=== PATIENT | female | born 1980 | race Two or more races ===

== ENCOUNTER → 2020-08-22 | Outpatient (CLI) | payer SELFPAY ==
[~2020-08-22] MED LIST: DOCU-109 PO; FERR325T14 PO; IBUP-1060 PO; OXYC1TAB15 PO
== END ==
LOC: LAB 11:50
PROVIDERS: ATTEND Obstetrics & Gynecology
DX: Z01.812 Encounter for preprocedural laboratory examination (principal); Z20.822 Contact with and (suspected) exposure to COVID-19
CPT/HCPCS: U0003

== ENCOUNTER 2020-08-25 05:26 | Inpatient (IN) | payer SELFPAY ==
[2020-08-25] VITALS (11 sets, daily range): BP systolic 109–127; BP diastolic 63–76
[~2020-08-25] VITALS: Ht 160 cm; Wt 109.5 kg
[2020-08-25] MEDS ORDERED: BENZOCAINE 20% TOPICAL AEROSOL SPRAY 57GM CAN. TP PRN (05:30)
[2020-08-25] MEDS ORDERED: MMR per PROTOCOL. MC PRN (05:30)
[2020-08-25] MEDS ORDERED: oxyCODONE/APAP 5/325 1 TAB TABLET PO PRN (05:30)
[2020-08-25] MEDS ORDERED: 0.9 % SODIUM CHLORIDE 10 ML DISP.SYRIN. IV PRN (05:30)
[2020-08-25] MEDS ORDERED: CITRIC ACID/SODIUM CITRATE 30 ML SOLUTION. PO ONE (05:30)
[2020-08-25] MEDS ORDERED: DOCUSATE SODIUM 100 MG CAPSULE. PO PRN (05:30)
[2020-08-25] MEDS ORDERED: diphenhydrAMINE ORAL ELIXIR 12.5 MG/5 ML ML PO PRN (05:30)
[2020-08-25] MEDS ORDERED: OXYTOCIN 30 UNIT/500 ML PREMIX 500 ML IV PRN (05:30)
[2020-08-25] MEDS ORDERED: ACETAMINOPHEN 325 MG TABLET. PO PRN (05:30)
[2020-08-25] MEDS ORDERED: TDaP (Adacel) per PROTOCOL. MC PRN (05:30)
[2020-08-25] MEDS ORDERED: ceFAZolin 2GM PREMIX 2 GM/50 ML BAG IV ONE (06:00)
[2020-08-25] MEDS: IV RINGERS,LACTATED 1000ML 1,000 ML IV SCH ×3 (06:25→21:36)
[2020-08-25 06:35] LABS: BILIRUBIN,URINE NEGATIVE (NEG); CLARITY,URINE CLEAR; COLOR,URINE YELLOW; NITRITE,URINE NEGATIVE (NEG); PROTEIN,URINE NEGATIVE (NEG-TRACE); UROBILINOGEN,URINE 0.2 mg/dL (0.2 mg/dL)
[2020-08-25 07:02] LABS: BACTERIA,URINE FEW /HPF (0-FEW); RBC,URINE 0 /HPF (0-2)
[2020-08-25] MEDS ORDERED: ePHEDrine PF IN SALINE 50 MG/10 ML SYRINGE. IV ONE (07:38)
[2020-08-25] MEDS ORDERED: PHENYLEPHRINE in 0.9% NACL PF 1 MG/10 ML SYRINGE. IV ONE (07:39)
[2020-08-25] MEDS ORDERED: ONDANSETRON PF 4 MG/2 ML VIAL. ONE ×2 (07:39→07:42)
[2020-08-25] MEDS ORDERED: MORPHINE PF 10 MG/10 ML AMPUL. ONE (07:39)
[2020-08-25] MEDS ORDERED: fentaNYL PF VIAL 100 MCG/2 ML VIAL ONE (07:40)
[2020-08-25] MEDS ORDERED: OXYTOCIN 10 UNIT/ML VIAL. ONE (07:41)
[2020-08-25] MEDS ORDERED: METOCLOPRAMIDE HCL 10 MG/2 ML VIAL. ONE (07:43)
[2020-08-25] MEDS ORDERED: FAMOTIDINE 20 MG/2 ML VIAL ONE (07:43)
--- NOTE | 2020-08-25 07:57 | PDOC1 ---
MARKETING CONSULTANT H&P Date of Admission: Date of Admission: Aug 25, 2020 at 05:26 History of Present Illness: EDC: 09/01/20 LMP: 11/26/19 39y @ 39.0 by L=18 presents for scheduled C/S. The pt has been relatively uncomplicated. She has been getting growth and testing a [facility] for AMA. PMH: Hyperlipidemia, Otitis media, Allergic rhinitis, Prediabetes PSH: C/S x 2 Meds: PNV, Fe, ASA All: NKDA OBHx: TC/S x 2 SH: no tob, no EtOH FH: HTN, DM Medications: Meds: Current Medications Medications (Trade) Dose Ordered Sig/Jaymie Route PRN Reason Start Time Stop Time Status Last Admin Dose Admin Citric Acid/ Sodium Citrate (Bicitra) 30 ml 1X ONCE PO 08/25/20 05:30 08/25/20 05:44 DC 08/25/20 07:27 Ringer's Solution 1,000 ml @ 125 mls/hr Q8H IV 08/25/20 06:30 08/25/20 07:51 Allergies: Coded Allergies: No Known Drug Allergies (Unverified , 08/25/20) Physical Exam: Vital Signs: Vital Signs Date Time Temp Pulse Resp B/P (MAP) Pulse Ox O2 Delivery O2 Flow Rate FiO2 08/25/20 06:30 97.6 86 18 127/75 (92) Room Air 97.6 PE: GENERAL: No apparent distress. Alert and oriented. HEENT: Head normocephalic, atraumatic. NECK: Supple LUNGS: Clear to auscultation. HEART: RRR, S1, S2 present, pulses intact ABDOMEN: Soft, positive bowel sounds. EXTREMITIES: No cyanosis or edema. NEUROLOGIC: Normal speech, normal tone PSYCHIATRIC: Normal affect, normal mood. SKIN: No ulceration. FHT: 150s +acels/no decels/mLTV Kinder: quiet Labs: Laboratory Tests Test 08/25/20 05:40 Urine Collection Type Unknown Urine Color Yellow Urine Clarity Clear Urine pH 7.0 (<5.0-8.0) Urine Specific [place] 1.020 (1.000-1.030) Urine Protein Negative mg/dL (NEG-TRACE) Urine Glucose (UA) Negative mg/dL (NEG) Urine Ketones (Stick) Negative mg/dL (NEG) Urine Blood Negative (NEG) Urine Nitrite Negative (NEG) Urine Bilirubin Negative (NEG) Urine Urobilinogen Dipstick 0.2 mg/dL (0.2 mg/dL) Urine Leukocyte Esterase Negative (NEG) Urine RBC 0 /HPF (0-2) Urine WBC 1-4 /HPF (0-4) Urine Squamous Epithelial Cells Many /LPF Urine Bacteria Few /HPF (0-FEW) Urine Mucus Slight /LPF Assessment & Plan: A/P 39y @ 39.0 by L=18 1.) Prev C/S x 2 - scheduled for RLTCS/BTL 2.) DPS - consent signed 07/09/20 3.) AMA - abnml quad, NIPT low risk, was seeing [facility] for high risk management 4.) Anemia - Hgb 9.0, on Fe BID 5.) H/o Covid 04/27/20 6.) Elevated GTT - all values of 3hr GTT nml 7.) Elevated BP in the office- BP nml today, no s/s of preeclampsia 8.) TDAP given 06/17/20 9.) Fetus cat I FHT 10.) GBS neg ALICE DOSHI MD Aug 25, 2020 07:57
[2020-08-25 08:11] LABS: HEMATOCRIT 40.1 % (36.0-47.0); HEMOGLOBIN 13.9 g/dL (12.0-15.5); RED BLOOD COUNT 4.35 x10^6/uL (3.50-5.40); RED CELL DISTRIBUTION WIDTH 14.1 % (11.5-14.5); WHITE BLOOD COUNT 9.1 x10^3/uL (4.0-11.0)
[2020-08-25] MEDS ORDERED: PRENATAL MULTIVITAMIN TABLET. PO SCH (09:00)
--- NOTE | 2020-08-25 10:25 | RAD ---
EXAM: Abdomen, single view. HISTORY: Foreign body assessment. Abnormal surgical count. COMPARISON: None. FINDINGS: Frontal views of the abdomen are obtained. There is a curvilinear radiodense foreign body o verlying the lateral left mid abdomen consistent with a lap sponge. There is gas and stool throughout the colon. There is rounded radiodense structure overlying the mid abdomen which may be overlying th e patient or due to a mass or masslike viscus. IMPRESSION: 1. Lap sponge overlying the left midabdomen. 2. Rounded structure overlying the mid lower abdomen possibly due to overlying artifact or a mass or masslike viscus. Electronically signed by: Manisha Kimble MD (08/25/2020 10:23 AM) [id number]
--- NOTE | 2020-08-25 11:14 | PDOC4 ---
OPERATIVE NOTE: PreOp Dx: 1.) IUP at 39.0 by L=18, 2.) Prev C/S x 2, 3.) DPS - consent signed 07/09/20, 4.) AMA - abnml quad, NIPT low risk, 5.) Anemia, 6.) H/o Covid 04/27/20, 7.) Elevated GTT - all values of 3hr GTT nml, 8.) GBS neg Post: Dx: same, 9.) Breech Procedure: RTCS/BTL Surgeon: Sandie Doshi Anesthesia: Epidural EBL: 900 cc Fluids: 1500 cc UOP: 250 cc Complications: Retained lap Fingings: viable female infant delivered at 0845. Wt 7 lb 10 oz. APGARS 8/9. ABG pH 7.21 BE -4, VBG pH 7.28 BE -5 Path: Blood gas, cord blood, placenta ALICE DOSHI MD Aug 25, 2020 11:14
--- NOTE | 2020-08-25 11:55 | OP ---
DATE OF SURGERY: 08/25/2020 PREOPERATIVE DIAGNOSES: 1. Intrauterine at 39 weeks and 0 days by LMP equal to 18-week ultrasound. 2. Previous section x 2. 3. Desires permanent sterilization. 4. Advanced maternal age with abnormal quad screen but normal NIPT. 5. Anemia. 6. History of COVID in April. 7. Elevated GTT with all values of 3-hour GTT normal. 8. GBS negative. POSTOPERATIVE DIAGNOSES: 1. Intrauterine at 39 weeks and 0 days by LMP equal to 18-week ultrasound. 2. Previous section x 2. 3. Desires permanent sterilization. 4. Advanced maternal age with abnormal quad screen but normal NIPT. 5. Anemia. 6. History of COVID in April. 7. Elevated GTT with all values of 3-hour GTT normal. 8. GBS negative. 9. Breech. PROCEDURE: Repeat low transverse with bilateral tubal ligation. SURGEON: Gatito Doshi MD ANESTHESIA: Spinal. ESTIMATED BLOOD LOSS: 900 mL. FLUIDS: 1500 mL. URINE OUTPUT: 250 mL. COMPLICATIONS: Retained lap, sponge. FINDINGS: Viable female infant delivered at 08:45, weighing 7 pounds 10 ounces with Apgars of 8 and 9. Cord ABG with a pH of 7.21 and a base excess of -4, venous cord blood gas with a pH of 7.28 with a base excess of -5. PATHOLOGY: Cord blood, cord gas and placenta. DESCRIPTION OF PROCEDURE: The patient was taken to the operating room where spinal anesthesia was placed without difficulty. The patient was prepped and draped in a normal fashion with a left lateral tilt. A Pfannenstiel skin incision was made through her previous incision and carried down to underlying layer of fascia. The fascia was then nicked in the midline. The fascial incision was then extended laterally with Luke scissors. The superior aspect of the fascial incision was then grasped with Senait clamps, elevated and the underlying rectus muscle was dissected off with the scalpel. Attention was then turned to the inferior aspect of the fascial incision, which was again grasped with a Senait clamp, elevated and the underlying rectus muscle was dissected off with Luke scissors. The midline of the rectus muscle was then identified and . The peritoneum was then grasped with 2 hemostats and tented up and entered sharply with Metzenbaum scissors. The peritoneal incision was then extended superiorly and inferiorly with good visualization of the bladder with traction and countertraction. At that point, the Beka ring was then placed in the abdomen to better visualize the lower uterine segment. A bladder flap was created with Metzenbaum scissors. The lower uterine segment was then incised in transverse fashion with the scalpel. The incision was then extended with traction and countertraction. At that point, examination of the hysterotomy revealed that the left foot was presenting. The other foot was attempted to be grasped, but was ultimately left in. This was then reduced. Once the left foot was grasped, both of them were brought to the hysterotomy. At that point, the was delivered to the level of the sacrum. At that point, the fetus was then rotated sacrum anterior. The infant was then delivered to the level of the scapula. At that point, the left arm was swept medially followed by the right arm, which was swept medially and delivered. At that point, the head was then flexed with the Rnzeyitfx-Ogbbsmt-Cgiw maneuver and delivered. At that point, the cord was double clamped and cut and the was handed over to the awaiting production packager. Cord gases were sent. Placenta was then removed manually and the uterus was then cleared of all clots and debris. The uterine incision was then repaired with #1 chromic in a running locked fashion. Second layer of the same suture was used to imbricate. Good hemostasis was noted. At that point, the uterus was then exteriorized to allow for the tubal to be performed. At that point, the left tube was then grasped with a Osborn clamp. An opening was created in the avascular portion of the mesosalpinx. Two free ties of 0 plain gut were then used to ligate the tube. This 2 cm segment of the tube was then excised and sent to pathology. Attention was then turned to the right tube, which was again grasped with a Osborn clamp. The avascular portion of the mesosalpinx was then opened, 2 free ties of 0 plain gut were then used to ligate. This 3 cm segment of the tube was then sent to pathology. The tubes were hemostatic. At that point, the uterus was returned to the abdomen. Attention was then returned to the hysterotomy. There was a portion at the left portion of the hysterotomy that appeared to be bleeding, 3-0 chromic was then placed in a [id number] manner to achieve hemostasis. At that point, the gutters were copiously irrigated and cleared of all clots and debris. Reexamination of the tubal sites revealed good hemostasis. At that point, the Beka ring was then removed. The peritoneum was then reapproximated with 2-0 Vicryl in a running fashion. The muscle was then reapproximated with 2-0 Vicryl in a running fashion. The fascia was then closed with 0 Vicryl in a running fashion. At that point, we realized that the count was incorrect. X-ray was called. While waiting for x-ray, over the next 10 minutes, the skin was closed with 3-0 Monocryl in a subcuticular manner. When the x-ray was performed, it was observed that there was a retained lap in the left pericolic gutter. At that point, the stitches were removed for the skin, fascia, muscle and peritoneum. The lap was then grasped and removed. At that point, the peritoneum was then reapproximated again in a running fashion with 2-0 Vicryl. The muscle was then reapproximated with 2-0 Vicryl in a running fashion. The fascia was then closed with 0 Vicryl in a running fashion. Then, the skin was closed with 3-0 Monocryl in a subcuticular manner. The sponges were correct on this count. Ancef 2 g were given prior to the procedure. The patient was taken to the recovery room in stable condition. GATITO DOSHI MD DR: DONAVON/debbie JOB#: [id number] / [id number] PAULO
[2020-08-25] MEDS: KETOROLAC 30 MG/ML VIAL. IVP PRN (18:25)
[2020-08-26] VITALS (9 sets, daily range): BP systolic 107–128; BP diastolic 66–87
[2020-08-26] MEDS: KETOROLAC 30 MG/ML VIAL. IVP PRN ×2 (00:30→06:10)
[2020-08-26 04:21] LABS: HEMATOCRIT 31.3 % (36.0-47.0); HEMOGLOBIN 10.8 g/dL (12.0-15.5); RED BLOOD COUNT 3.36 x10^6/uL (3.50-5.40); RED CELL DISTRIBUTION WIDTH 14.2 % (11.5-14.5); WHITE BLOOD COUNT 8.6 x10^3/uL (4.0-11.0)
--- NOTE | 2020-08-26 06:36 | NUR ---
pt met 30cc/hour requirement for UO however urine is concentrated and pt received 5 liters IV fluids. pt had large EBL in OR. minimal po fluid intake through the night approx 50 ml po in 12 hours. No s/s edema. delayed removal of wahl at this time to watch accurate I&O, encouraged po fluid intake.
--- NOTE | 2020-08-26 09:00 | PDOC ---
ADMISSIONS REPRESENTATIVE PROGRESS NOTE Date of Service: DATE: 08/26/20 TIME: 08:59 Subjective: Pt with good pain control. Srikanth PO. Parker in place. Minimal lochia Objective: Vital Signs: Vital Signs Date Time Temp Pulse Resp B/P (MAP) Pulse Ox O2 Delivery O2 Flow Rate FiO2 08/25/20 13:50 Room Air 08/25/20 13:50 98.2 72 18 122/76 (91) 96 98.2 Vital Signs Date Time Temp Pulse Resp B/P (MAP) Pulse Ox O2 Delivery O2 Flow Rate FiO2 08/26/20 08:15 97.9 80 20 121/76 (91) 97 Room Air 97.9 Labs: Laboratory Tests Test 08/26/20 03:30 White Blood Count 8.6 x10^3/uL (4.0-11.0) Red Blood Count 3.36 x10^6/uL (3.50-5.40) L Hemoglobin 10.8 g/dL (12.0-15.5) L Hematocrit 31.3 % (36.0-47.0) L Mean Corpuscular Volume 93 fL (79-100) Mean Corpuscular Hemoglobin 32 pg (25-35) Mean Corpuscular Hemoglobin Concent 35 g/dL (31-37) Red Cell Distribution Width 14.2 % (11.5-14.5) Platelet Count 101 x10^3/uL (140-400) L Laboratory Tests 08/26/20 03:30 Laboratory Tests 08/26/20 03:30 Physical Exam: GENERAL: No apparent distress. Alert and oriented. HEENT: Head normocephalic, atraumatic. NECK: Supple LUNGS: Clear to auscultation. HEART: RRR, S1, S2 present, pulses intact ABDOMEN: Soft, positive bowel sounds. EXTREMITIES: No cyanosis or edema. NEUROLOGIC: Normal speech, normal tone PSYCHIATRIC: Normal affect, normal mood. SKIN: No ulceration. Inc: dressing dry FFNT below umb No C/C/E Assessment & Plan: A/P 39y POD #1 s/p RLTCS/BTL 1.) PO doing well 2.) Hgb 13.9 -> 10.8 3.) H/o Covid 04/27/20 4.) Elevated BP in the office- BP nml throughout hospitalization 5.) TDAP given 12/29/20 6.) Cont PO care ALICE DOSHI MD Aug 26, 2020 09:00
[2020-08-26] MEDS: oxyCODONE/APAP 5/325 1 TAB TABLET PO PRN ×3 (09:27→20:41)
[2020-08-26] MEDS: FERROUS SULFATE 325 MG TABLET. PO SCH (09:27)
[2020-08-26] MEDS: IBUPROFEN 400 MG TABLET. PO PRN (12:27)
[2020-08-27] MEDS: IBUPROFEN 400 MG TABLET. PO PRN ×2 (01:27→09:16)
[2020-08-27] MEDS: oxyCODONE/APAP 5/325 1 TAB TABLET PO PRN ×2 (01:28→11:50)
[2020-08-27 01:33] VITALS: BP 118/74
[2020-08-27 05:00] VITALS: BP 134/76
[2020-08-27] MEDS ORDERED: OXYC1TAB15 PO (08:43)
[2020-08-27] MEDS ORDERED: IBUP-1060 PO (08:43)
[2020-08-27] MEDS ORDERED: FERR325T14 PO (08:43)
[2020-08-27] MEDS ORDERED: DOCU-109 PO (08:43)
[2020-08-27] MEDS: FERROUS SULFATE 325 MG TABLET. PO SCH (09:15)
--- NOTE | 2020-08-27 09:18 | PDOC ---
PLANT OPERATIONS WORKER PROGRESS NOTE Date of Service: DATE: 08/27/20 TIME: 09:17 Subjective: Pt with good pain control. Srikanth PO. Parker in place. Minimal lochia Objective: Vital Signs: Vital Signs Date Time Temp Pulse Resp B/P (MAP) Pulse Ox O2 Delivery O2 Flow Rate FiO2 08/26/20 08:15 97.9 80 20 121/76 (91) 97 Room Air 97.9 Vital Signs Date Time Temp Pulse Resp B/P (MAP) Pulse Ox O2 Delivery O2 Flow Rate FiO2 08/27/20 05:00 98.7 78 18 134/76 (95) 98 98.7 08/27/20 02:47 Room Air Physical Exam: GENERAL: No apparent distress. Alert and oriented. HEENT: Head normocephalic, atraumatic. NECK: Supple LUNGS: Clear to auscultation. HEART: RRR, S1, S2 present, pulses intact ABDOMEN: Soft, positive bowel sounds. EXTREMITIES: No cyanosis or edema. NEUROLOGIC: Normal speech, normal tone PSYCHIATRIC: Normal affect, normal mood. SKIN: No ulceration. Inc: small defect right of center with some slight bleeding FFNT below umb No C/C/E Assessment & Plan: A/P 39y POD #2 s/p RLTCS/BTL 1.) PO doing well 2.) Hgb 13.9 -> 10.8 3.) Thrombocytopenia 125 -> 101 4.) H/o Covid 04/27/20 5.) Elevated BP in the office- BP nml throughout hospitalization 6.) TDAP given 06/17/20 7.) D/C home ALICE DOSHI MD Aug 27, 2020 09:18
--- NOTE | 2020-08-27 09:30 | DS ---
DATE OF DISCHARGE: 08/27/2020 ADMISSION DIAGNOSES: 1. Intrauterine at 39 weeks and 0 days by LMP equal to an 18-week ultrasound. 2. Previous section x 2. 3. Desires permanent sterilization. 4. Advanced maternal age. 5. Anemia. 6. History of COVID in April. 7. Elevated glucose tolerance tests with a normal 3-hour glucose tolerance test. 8. Elevated blood pressures in the office. 9. GBS negative. DISCHARGE DIAGNOSES: 1. Intrauterine at 39 weeks and 0 days by LMP equal to an 18-week ultrasound. 2. Previous section x 2. 3. Desires permanent sterilization. 4. Advanced maternal age. 5. Anemia. 6. History of COVID in April. 7. Elevated glucose tolerance tests with a normal 3-hour glucose tolerance test. 8. Elevated blood pressures in the office. 9. GBS negative. PROCEDURE: Repeat low transverse with bilateral tubal ligation. BRIEF HOSPITAL COURSE: The patient is a 39-year-old 4, para 2-0-1-2, who presented to Labor and Delivery at 39 weeks and 0 days by LMP to 18-week ultrasound for a scheduled . The patient's had been relatively uncomplicated. Due to her AMA status, the patient was getting growth ultrasounds and testing at [facility]. The patient ultimately underwent repeat low transverse . See operative note for full detail. By postoperative day #2, the patient was meeting all discharge criteria and was subsequently discharged home. Of note, the patient had hemoglobin of 13.9 on admission and after delivery it was found to be 10.8. She also had platelets of 125 prior to delivery and was found to be 101 post delivery. Throughout her course in the hospital, the patient's blood pressures remained normal. DISCHARGE INSTRUCTIONS: The patient was told not to lift anything greater than 20 pounds, have pelvic rest for 6 weeks, and not to drive on narcotics. CALL IF: The patient was to call if she had fevers, chills, nausea, vomiting, abdominal pain or any additional questions or concerns. FOLLOWUP APPOINTMENT: The patient is to follow up on 09/04/2020 at 1:20 p.m. for an incision check. DISCHARGE MEDICATIONS: The patient was given a prescription for Percocet 5, 15 pills; Motrin 800 mg, 30 pills; Colace 100 mg, 30 pills and ferrous sulfate 325 mg, 30 pills. ALICE DOSHI MD DR: DONAVON/debbie JOB#: [id number] / [id number]
[2020-08-27 11:50] VITALS: BP 125/62
--- NOTE | 2020-08-27 11:50 | NUR ---
11:50 to 1245pm. Home care and discharge session/teaching and instructions for mom and baby was completed with mom and FOB. Copy given to pt post verbal and written/signed understanding.Follow up appts were confirmed and made for mom and baby. 1250. Pt and escorted in stable condition per w/c.
== END 2020-08-27 15:30 | disposition home or self-care (01) | DRG 785 ==
LOC: 3 SO LND 05:26 → 3 NORTH 15:06
PROVIDERS: ADMIT Obstetrics & Gynecology; ATTEND Obstetrics & Gynecology
PROC: 10D00Z1 Extraction of Products of Conception, Low, Open Approach (ICD-10-PCS; principal; 2020-08-25)
PROC: 0UB70ZZ Excision of Bilateral Fallopian Tubes, Open Approach (ICD-10-PCS; 2020-08-25)
DX: O34.211 Maternal care for low transverse scar from previous cesarean delivery (principal); E78.5 Hyperlipidemia, unspecified; O99.02 Anemia complicating childbirth; O99.892 Other specified diseases and conditions complicating childbirth; O99.284 Endocrine, nutritional and metabolic diseases complicating childbirth; Z86.16 Personal history of COVID-19; O32.1XX0 Maternal care for breech presentation, not applicable or unspecified; O28.1 Abnormal biochemical finding on antenatal screening of mother; R73.03 Prediabetes; Z83.3 Family history of diabetes mellitus; Z82.49 Family history of ischemic heart disease and other diseases of the circulatory system; Z79.899 Other long term (current) drug therapy; Z3A.39 39 weeks gestation of pregnancy; Z30.2 Encounter for sterilization; Z37.0 Single live birth; D69.6 Thrombocytopenia, unspecified
CPT/HCPCS: 36415; 74018; 81001; 85027; 86592; 86850; 86900; 86901; C1755; J0690; J1885; J2274; J2370; J2405; J2590; J2765; J3010; J3490; J7120; G0378

== ENCOUNTER 2021-06-11 17:22 | Emergency (ER) | payer SELFPAY ==
[~2021-06-11] VITALS: Ht 162.6 cm; Wt 95.8 kg
--- NOTE | 2021-06-11 18:07 | PHYS DOC ---
General Adult EDM: Chief Complaint: VAGINAL BLEEDING HPI: HPI: Patient is a 40 year old female here with heavy vaginal bleeding for the past 2 weeks. She reports pelvic pain and cramping. No unilateral or focal pain. She denies nausea or vomiting. She denies fevers or chills. She denies urinary sym ptoms. She had a in August of this year to deliver her last baby. She has had 3 pregnancies total, all of which are living, per her report. She reports that 2 months ago her doctor placed her on oral contraceptive pills to help with vaginal bleeding. 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 Denies di zziness, shortness of breath, chest pain, weakness, falls, syncope. No real changes in any symptoms today. She was concerned about what the bleeding and clots looked like, which is why she decided to come today. She is worried that it is possible that she could be . She does report that at the time of her she had a tubal ligation. Review of Systems: Review of Systems: Constitutional: Denies fever or chills. [] HENT: Denies nasal congestion or sore throat. [] Respiratory: Denies cough or shortness of breath. [] Cardiovascular: Denies chest pain or edema. [] GI: Pelvic pain. Denies nausea, vomiting, diarrhea or constipation : Denies urinary symptoms. Reports heavy vaginal bleeding and pelvic pain Musculoskeletal: Denies back pain or joint pain. [] Integument: Denies rash. [] Neurologic: Denies headache, focal weakness or sensory changes. [] Psychiatric: Denies depression or anxiety. [] Heart Score: C/O Chest Pain: No Risk Factors: Risk Factors: DM, Current or recent (<one month) smoker, HTN, HLP, family history of CAD, obesity. Risk Scores: Score 0 - 3: 2.5% MACE over next 6 weeks - Discharge Home Score 4 - 6: 20.3% MACE over next 6 weeks - Admit for Clinical Observation Score 7 - 10: 72.7% MACE over next 6 weeks - Early Invasive Strategies Allergies: Allergies: Allergies Coded Allergies Type Severity Reaction Last Updated Verified No Known Drug Allergies 08/25/20 No Physical Exam: PE: Constitutional: Well developed, well nourished, no acute distress, non-toxic appearance. [] HENT: Normocephalic, atraumatic Neck: Trachea midline Cardiovascular:Heart rate regular rhythm, +2 radial and +2 posterior tibial pulses Lungs & Thorax: Bilateral breath sounds clear to auscultation Abdomen: Abdomen is soft, nondistended, nontender to palpation, normal bowel sounds, no palpable masses organomegaly, no CVA tenderness Skin: Warm, dry, no erythema, no rash. [] Back: No tenderness, no CVA tenderness. [] Extremities: No tenderness, no cyanosis, no clubbing, ROM intact, no edema. [] Neurologic: Alert and oriented X 3, normal motor function, normal sensory function, no focal deficits noted. [] Psychologic: Affect normal, judgement normal, mood normal. [] EKG: EKG: [] Radiology/Procedures: Radiology/Procedures: IMAGING REPORT Signed PATIENT: OSMANI HARTMANCOUNT: [id number] : 1980 LOCATION: ER AGE: 40 SEX: F EXAM STATUS: REG ER ORD. PHYSICIAN: DANIELA MCCLELLAN DO REASON: pelvic pain, heavy vaginal bleeding PROCEDURE: PELVIS COMPLETE INDICATION: Reason: pelvic pain, heavy vaginal bleeding / Spl. Instructions: / History: COMPARISON: None. TECHNIQUE: Grayscale and color ultrasound images uterus and adnexa. Transvaginal images were obtained. FINDINGS: Uterus: 103 x 61 x 69 mm. 11 mm endometrial stripe. Right Ovary: 24 x 24 x 20 mm. Left Ovary: Obscured 24 x 34 Mm cystic lesion in the right adnexa vascular flow is seen to the right ovary. IMPRESSION: * Cystic lesion in the right adnexa. Possible causes would include exophytic cystic lesion of the right ovary or paraovarian cyst. Vascular flow seen to the right ovary. * Left ovary is obscured. * Uterus unremarkable. Electronically signed by: Edu Carvajal MD (06/11/2021 8:09 PM) DESKTOP- [id number] DICTATED and SIGNED BY: EDU CARVAJAL MD DATE: 06/11/21 [id number] 0 Course & Med Decision Making: Course & Med Decision Making Pertinent Labs and Imaging studies reviewed. (See chart for details) I have discussed the findings, differential diagnosis and plan of care with the patient. She does have some mild anemia. Pelvic ultrasound is unremarkable. No evidence of , ectopic . She is hemodynamically stable. I do suspect this anemia is compensated and chronic. I gave her information for her previous PAPER GLUING OPERATOR, Dr. Celeste, so she can follow-up. If her bleeding continues, she may require either a different medication, or she may require surgical intervention, such as ablation. This should all be discussed with her cabin equipment supervisor. She may continue taking her OCPs at this time. She is prescribed iron, as anemia appears to be microcytic. No indication for further invasive exams or admission at this time. Return precautions are given. Dragon Disclaimer: Dragon Disclaimer: This electronic medical record was generated, in whole or in part, using a voice recognition dictation system. Departure Departure Impression: Primary Impression: Menorrhagia Additional Impression: Mild anemia Disposition: 01 HOME / SELF CARE / HOMELESS Condition: STABLE Referrals: UNKNOWN PCP NAME (PCP) ALICE CELESTE MD Patient Instructions: Abnormal Uterine Bleeding, Iron Deficiency Anemia, Menorrhagia Additional Instructions: Your ultrasound is normal. There is no evidence that you have a . T here is no evidence of infection. You do have mild anemia, which is probably from your heavy vaginal bleeding. Please contact Dr. Celeste of gynecology to follow up and discuss further treatment options. You may need a different form of control. There are also types of non-emergency surgeries that can be done to help with bleeding, so please contact his office to discuss this further. Return to the ER for heavier bleeding, fever of 100.4 or higher, for more severe pain or other concerns. Scripts Ferrous Sulfate (FERROUS SULFATE) 325 Mg Tablet 1 TAB PO DAILY, #30 TAB 0 Refills Prov: DANIELA MCCLELLAN DO 06/11/21 Hydrocodone Bit/Acetaminophen (HYDROCODONE-APAP 5-325 ) 1 Tab Tablet 1 TAB PO PRN Q6HRS PRN for PAIN, #15 TAB 0 Refills Prov: DANIELA MCCLELLAN DO 06/11/21 Ondansetron Hcl (ZOFRAN) 4 Mg Tablet 4 MG PO PRN TID PRN for VOMITING, #20 TAB nausea/vomiting Prov: ELEUTERIODANIELA DO 06/11/21 ELEUTERIODANIELA MAN DO Jun 11, 2021 18:07
[2021-06-11 18:41] LABS: BILIRUBIN,URINE NEGATIVE (NEG); CLARITY,URINE CLEAR; COLOR,URINE YELLOW; NITRITE,URINE NEGATIVE (NEG); PROTEIN,URINE NEGATIVE (NEG-TRACE); UROBILINOGEN,URINE 0.2 mg/dL (0.2 mg/dL)
[2021-06-11 18:44] LABS: U PREG PATIENT NEGATIVE (NEG)
[2021-06-11 19:06] LABS: BACTERIA,URINE FEW /HPF (0-FEW)
[2021-06-11 19:07] LABS: RBC,URINE TNTC /HPF (0-2)
[2021-06-11 19:16] LABS: BASO % 0 % (0-3); EOS # 0.1 x10^3/uL (0.0-0.7); EOS % 1 % (0-3); HEMATOCRIT 29.2 % (36.0-47.0); HEMOGLOBIN 9.6 g/dL (12.0-15.5); LYMPH # 2.2 x10^3/uL (1.0-4.8); LYMPH % 34 % (24-48); MEAN CORPUSCULAR HEMOGLOBIN 27 pg (25-35); MEAN CORPUSCULAR HGB CONC 33 g/dL (31-37); MEAN CORPUSCULAR VOLUME 83 fL (79-100); MONO # 0.4 x10^3/uL (0.0-1.1); MONO % 6 % (0-9); NEUT # 3.8 x10^3/uL (1.8-7.7); NEUT % 59 % (31-73); PLATELET COUNT 163 x10^3/uL (140-400); RED BLOOD COUNT 3.53 x10^6/uL (3.50-5.40); RED CELL DISTRIBUTION WIDTH 14.6 % (11.5-14.5); WHITE BLOOD COUNT 6.4 x10^3/uL (4.0-11.0)
[2021-06-11 19:35] LABS: CALCIUM 8.3 mg/dL (8.5-10.1); CREATININE 0.7 mg/dL (0.6-1.0); GFR 92.2; POTASSIUM 3.6 mmol/L (3.5-5.1)
--- NOTE | 2021-06-11 20:11 | RAD ---
INDICATION: Reason: pelvic pain, heavy vaginal bleeding / Spl. Instructions: / History: COMPARISON: None. TECHNIQUE: Grayscale and color ultrasound images uterus and adnexa. Transvaginal images were obtaine d. FINDINGS: Uterus: 103 x 61 x 69 mm. 11 mm endometrial stripe. Right Ovary: 24 x 24 x 20 mm. Left Ovary: Obscured 24 x 34 Mm cystic lesion in the right adnexa vascular flow is seen to the right ovary. IMPRESSION: * Cystic lesion in the right adnexa. Possible causes would include exophytic cystic lesion of the r ight ovary or paraovarian cyst. Vascular flow seen to the right ovary. * Left ovary is obscured. * Uterus unremarkable. Electronically signed by: Lucian Borden MD (06/11/2021 8:09 PM) [id number]
[2021-06-11 20:45] VITALS: BP 132/71
[2021-06-11] MEDS ORDERED: FERR325T14 PO (20:53)
[2021-06-11] MEDS ORDERED: ONDA4TAB7 PO (20:53)
[2021-06-11] MEDS ORDERED: HYDR-2761 PO (20:53)
== END 2021-06-11 21:15 | disposition home or self-care (01) ==
LOC: ER 17:22
DX: N92.0 Excessive and frequent menstruation with regular cycle (principal); D64.9 Anemia, unspecified
CPT/HCPCS: 36415; 76856; 80048; 81001; 81025; 84702; 85025; 86850; 86900; 86901; 99285-25